=== PATIENT | male | born 1995 | race Caucasian/White ===

== ENCOUNTER 2021-12-18 13:43 | Emergency (ER) | payer MEDICAID ==
[~2021-12-18] VITALS: Ht 165.1 cm; Wt 57.0 kg
[2021-12-18 13:47] VITALS: BP 130/85
[2021-12-18] MEDS ORDERED: HYDROCODONE/ACETAMINOPHEN 5/325MG TABLET PO ONE (14:00)
[2021-12-18] MEDS ORDERED: LIDOCAINE HCL 1% 20ML VIAL (Pyxis) INJ INFIL ONE (14:15)
[2021-12-18] MEDS ORDERED: LIDOCAINE HCL 1% 10 MG/ML 10ML VIAL IJ NR (14:45)
[2021-12-18] MEDS ORDERED: NAPR-681 MT (17:20)
[2021-12-18] MEDS ORDERED: HYDR-4001 MT (17:20)
== END 2021-12-18 18:11 | disposition home or self-care (01) ==
LOC: ER 13:43
DX: S62.395A Other fracture of fourth metacarpal bone, left hand, initial encounter for closed fracture (principal); S62.397A Other fracture of fifth metacarpal bone, left hand, initial encounter for closed fracture; S60.512A Abrasion of left hand, initial encounter; W13.2XXA Fall from, out of or through roof, initial encounter; Y93.89 Activity, other specified; Y92.89 Other specified places as the place of occurrence of the external cause
CPT/HCPCS: 26605; 73130; 99152; 99285; J3490